=== PATIENT | female | born 1995 | race Caucasian/White ===

== ENCOUNTER 2018-03-13 19:53 | Emergency (ER) | payer OTHER ==
[~2018-03-13] VITALS: Ht 180.3 cm; Wt 100.2 kg
[~2018-03-13 19:53] MED LIST: BIRTH CONTROL PILL PO; Triamcinolone A15 GM TOP
[2018-03-13] MEDS ORDERED: BIRTH CONTROL (20:58)
== END 2018-03-13 22:37 | disposition home or self-care (01) ==
LOC: ER 19:53
DX: S09.90XA Unspecified injury of head, initial encounter (principal); S40.012A Contusion of left shoulder, initial encounter; S70.02XA Contusion of left hip, initial encounter; V80.010A Animal-rider injured by fall from or being thrown from horse in noncollision accident, initial encounter
CPT/HCPCS: 70450; 71046; 72125; 73030; 73502; 99284; L0160

== ENCOUNTER 2019-08-01 16:46 | Emergency (ER) | payer OTHER ==
[~2019-08-01] VITALS: Ht 180.3 cm; Wt 83.5 kg
[~2019-08-01 16:46] MED LIST changes: +BIRTH CONTROL
[2019-08-01] MEDS ORDERED: ONDA4ODT MM (17:44)
== END 2019-08-01 18:01 | disposition home or self-care (01) ==
LOC: ER 16:46
DX: S09.90XA Unspecified injury of head, initial encounter (principal); S16.1XXA Strain of muscle, fascia and tendon at neck level, initial encounter; V80.010A Animal-rider injured by fall from or being thrown from horse in noncollision accident, initial encounter
CPT/HCPCS: 72040; 99284-25; L0160

== ENCOUNTER 2022-05-14 20:10 | Emergency (ER) | payer OTHER ==
[~2022-05-14] VITALS: Ht 177.8 cm; Wt 93.0 kg
[~2022-05-14 20:10] MED LIST changes: +ONDA4ODT MM
== END 2022-05-14 22:27 | disposition home or self-care (01) ==
LOC: ER 20:10
DX: O21.9 Vomiting of pregnancy, unspecified (principal); O99.891 Other specified diseases and conditions complicating pregnancy; R19.7 Diarrhea, unspecified; Z3A.00 Weeks of gestation of pregnancy not specified
CPT/HCPCS: 36415

== ENCOUNTER → 2022-09-19 | Outpatient (CLI) | payer OTHER ==
[2022-09-19 17:28] LABS: BASOPHILS ABSOLUTE AUTO 0.02 K/mm3 (0.00-0.23); BASOPHILS PERCENT AUTO 0 % (0-2); EOSINOPHILS PERCENT AUTO 0 % (0-6); Hematocrit 42.4 % (33.0-51.0); IMMATURE GRAN ABSOLUTE AUTO 0.07 K/mm3 (0.00-0.10); IMMATURE GRAN PERCENT AUTO 1 % (0-1); LYMPHOCYTES ABSOLUTE AUTO 0.71 K/mm3 (0.84-5.20); LYMPHOCYTES PERCENT AUTO 13 % (21-46); MONOCYTES PERCENT AUTO 11 % (4-13); Mean Corpuscular HGB 31.8 pg (26.0-34.0); Mean Corpuscular HGB Conc 35.4 g/dL (31.5-36.5); Mean Corpuscular Volume 90 fL (80-100); Mean Platelet Volume 11.1 fL (9.1-12.4); NEUTROPHILS ABSOLUTE AUTO 4.19 K/mm3 (1.96-9.15); NEUTROPHILS PERCENT AUTO 75 % (41-73); Platelet Count 176 K/mm3 (150-400); RDW Coefficient Variation 13.8 % (11.7-14.2); RDW Standard Deviation 45.7 fL (35.1-46.3); Red Blood Cell Count 4.72 M/mm3 (3.80-5.20); White Blood Cell Count 5.59 K/mm3 (4.00-11.30)
[2022-09-19 17:37] LABS: Albumin, Blood 3.4 g/dL (3.4-5.0); Albumin/Globulin Ratio 0.8 (0.8-1.8); Bilirubin, Total 0.4 mg/dL (0.1-1.0); Bun/Creatinine Ratio 11.5 (12.0-20.0); Calcium, Blood 8.9 mg/dL (8.5-10.1); Creatinine, Blood 0.61 mg/dL (0.40-1.00); Globulin, Blood 4.5 g/dL (2.2-4.0); Potassium, Blood 3.3 mmol/L (3.5-5.5); Total Protein, Blood 7.9 g/dL (6.4-8.2)
== END | disposition home or self-care (01) ==
LOC: LAB SHORT 17:19
PROVIDERS: Physician Assistant Medical
DX: R10.9 Unspecified abdominal pain (principal)
CPT/HCPCS: 80053; 85025

== ENCOUNTER → 2022-12-11 | Outpatient (CLI) | payer OTHER | END | disposition home or self-care (01) | LOC: LAB 14:41 → LAB SHORT 14:41 | DX: Z34.03 Encounter for supervision of normal first pregnancy, third trimester (principal); Z3A.36 36 weeks gestation of pregnancy | CPT/HCPCS: 87081; 87150 ==

== ENCOUNTER 2023-01-03 19:38 | Inpatient (IN) | payer OTHER ==
[~2023-01-03] VITALS: Ht 177.8 cm; Wt 109.1 kg
[2023-01-03 20:37] LABS: BASOPHILS ABSOLUTE AUTO 0.03 K/mm3 (0.00-0.23); BASOPHILS PERCENT AUTO 0 % (0-2); EOSINOPHILS PERCENT AUTO 1 % (0-6); Hematocrit 38.4 % (33.0-51.0); Hemoglobin 13.2 g/dL (11.5-16.0); IMMATURE GRAN PERCENT AUTO 1 % (0-1); LYMPHOCYTES PERCENT AUTO 10 % (21-46); MONOCYTES ABSOLUTE AUTO 0.72 K/mm3 (0.16-1.47); MONOCYTES PERCENT AUTO 5 % (4-13); Mean Corpuscular HGB 30.5 pg (26.0-34.0); Mean Corpuscular HGB Conc 34.4 g/dL (31.5-36.5); Mean Corpuscular Volume 89 fL (80-100); Mean Platelet Volume 11.8 fL (9.1-12.4); NEUTROPHILS ABSOLUTE AUTO 13.03 K/mm3 (1.96-9.15); NEUTROPHILS PERCENT AUTO 84 % (41-73); Platelet Count 201 K/mm3 (150-400); RDW Coefficient Variation 13.6 % (11.7-14.2); RDW Standard Deviation 43.9 fL (35.1-46.3); Red Blood Cell Count 4.33 M/mm3 (3.80-5.20); White Blood Cell Count 15.48 K/mm3 (4.00-11.30)
[2023-01-04 06:02] LABS: BASOPHILS ABSOLUTE AUTO 0.02 K/mm3 (0.00-0.23); BASOPHILS PERCENT AUTO 0 % (0-2); EOSINOPHILS PERCENT AUTO 1 % (0-6); Hematocrit 39.5 % (33.0-51.0); Hemoglobin 13.5 g/dL (11.5-16.0); IMMATURE GRAN ABSOLUTE AUTO 0.08 K/mm3 (0.00-0.10); IMMATURE GRAN PERCENT AUTO 1 % (0-1); LYMPHOCYTES ABSOLUTE AUTO 1.54 K/mm3 (0.84-5.20); LYMPHOCYTES PERCENT AUTO 12 % (21-46); MONOCYTES ABSOLUTE AUTO 0.77 K/mm3 (0.16-1.47); MONOCYTES PERCENT AUTO 6 % (4-13); Mean Corpuscular HGB 30.7 pg (26.0-34.0); Mean Corpuscular HGB Conc 34.2 g/dL (31.5-36.5); Mean Corpuscular Volume 90 fL (80-100); Mean Platelet Volume 11.9 fL (9.1-12.4); NEUTROPHILS ABSOLUTE AUTO 10.61 K/mm3 (1.96-9.15); NEUTROPHILS PERCENT AUTO 81 % (41-73); Platelet Count 174 K/mm3 (150-400); RDW Coefficient Variation 13.7 % (11.7-14.2); RDW Standard Deviation 44.9 fL (35.1-46.3); White Blood Cell Count 13.12 K/mm3 (4.00-11.30)
[2023-01-04 06:05] LABS: Protein, Urine Random 21.4 mg/dL (0.0-11.9); Protein/Creat Ratio, Ur Random 0.2
[2023-01-04 06:17] LABS: Albumin, Blood 2.6 g/dL (3.4-5.0); Albumin/Globulin Ratio 0.6 (0.8-1.8); Bilirubin, Total 0.3 mg/dL (0.1-1.0); Bun/Creatinine Ratio 17.8 (12.0-20.0); Calcium, Blood 8.9 mg/dL (8.5-10.1); Creatinine, Blood 0.56 mg/dL (0.40-1.00); Globulin, Blood 4.3 g/dL (2.2-4.0); Potassium, Blood 3.7 mmol/L (3.5-5.5); Total Protein, Blood 6.9 g/dL (6.4-8.2)
[2023-01-04 07:31] LABS: International Normalized Ratio 0.99; Prothrombin Time Results 10.4 Sec (9.7-11.5)
--- NOTE | 2023-01-06 07:56 | NUR ---
01/06/23 0756 Lory Rich 0735 DELIVERY VIABLE MALE WEIGHT [id number] 10# 3OZ, HEAD 15 INCHES, CHEST 15 INCHES, LENGTH 22 INCHES, APGARS 9/9, UMBILICAL CORD BLOOD COLLECTED GIVEN TO OB RN , UMBILICAL CORD SEGMENT COLLECTED FOR CORD GASES AND GIVEN TO RT.
[2023-01-06 08:00] LABS: PCO2 Cord - Arterial 64.7 mmHg (40-50); PO2 Cord - Arterial 15.3 mmHg (16-20); pH Cord - Arterial 7.23 (7.28-7.35)
[2023-01-06 08:02] LABS: PCO2 Cord - Venous 50.9 mmHg (40-50); PO2 Cord - Venous 22.5 mmHg (28-32); pH Umbilical Cord - Venous 7.32 (7.26-7.35)
[2023-01-07 06:06] LABS: BASOPHILS ABSOLUTE AUTO 0.04 K/mm3 (0.00-0.23); BASOPHILS PERCENT AUTO 0 % (0-2); EOSINOPHILS ABSOLUTE AUTO 0.04 K/mm3 (0.00-0.68); EOSINOPHILS PERCENT AUTO 0 % (0-6); Hematocrit 36.9 % (33.0-51.0); Hemoglobin 12.4 g/dL (11.5-16.0); IMMATURE GRAN ABSOLUTE AUTO 0.09 K/mm3 (0.00-0.10); IMMATURE GRAN PERCENT AUTO 1 % (0-1); LYMPHOCYTES PERCENT AUTO 5 % (21-46); MONOCYTES ABSOLUTE AUTO 1.17 K/mm3 (0.16-1.47); MONOCYTES PERCENT AUTO 6 % (4-13); Mean Corpuscular HGB 30.3 pg (26.0-34.0); Mean Corpuscular HGB Conc 33.6 g/dL (31.5-36.5); Mean Corpuscular Volume 90 fL (80-100); Mean Platelet Volume 11.6 fL (9.1-12.4); NEUTROPHILS ABSOLUTE AUTO 16.13 K/mm3 (1.96-9.15); NEUTROPHILS PERCENT AUTO 88 % (41-73); Platelet Count 150 K/mm3 (150-400); RDW Coefficient Variation 14.1 % (11.7-14.2); RDW Standard Deviation 46.5 fL (35.1-46.3); Red Blood Cell Count 4.09 M/mm3 (3.80-5.20); White Blood Cell Count 18.37 K/mm3 (4.00-11.30)
[2023-01-08] MEDS ORDERED: DOCU100 PO (07:55)
[2023-01-08] MEDS ORDERED: IBUP800 PO (07:55)
[2023-01-08] MEDS ORDERED: Percocet 5-3251 EACH PO (07:57)
[2023-01-08] MEDS ORDERED: PRENATAL TABLE1 EAC2 PO (07:57)
--- NOTE | 2023-01-08 11:02 | NUR ---
AMBULATE OUT, HAS YOGI AT [facility] NUMBER TO CALL FOR HELP THIS WEEK, PT WANTS TO LEAVE AND GO HOME, FEELS GOOD ABOUT , gave some formula for back up incase mom has problems latching baby. dr kyle and both saw and talked to mom about feeds. pt has jona dressing patches and instructed how to use, has an appointment with dr kyle next week to remove jona dressing. pt has pffu tomorrow with candy to evlauate how mom and baby are doing
== END 2023-01-08 11:00 | disposition home or self-care (01) | DRG 786 ==
LOC: OBS 19:38 → BC 19:41 → OBS 19:51 → BC 19:52
PROVIDERS: ADMIT Family Medicine
PROC: 10H07YZ Insertion of Other Device into Products of Conception, Via Natural or Artificial Opening (ICD-10-PCS; 2023-01-06)
PROC: 4A033R1 Measurement of Arterial Saturation, Peripheral, Percutaneous Approach (ICD-10-PCS; 2023-01-06)
PROC: 10D00Z1 Extraction of Products of Conception, Low, Open Approach (ICD-10-PCS; principal; 2023-01-06 06:30)
DX: O48.0 Post-term pregnancy (principal); O41.1230 Chorioamnionitis, third trimester, not applicable or unspecified; O34.13 Maternal care for benign tumor of corpus uteri, third trimester; D25.9 Leiomyoma of uterus, unspecified; O76 Abnormality in fetal heart rate and rhythm complicating labor and delivery; O13.4 Gestational [pregnancy-induced] hypertension without significant proteinuria, complicating childbirth; Z37.0 Single live birth; Z3A.40 40 weeks gestation of pregnancy
CPT/HCPCS: 36415; 80053; 82570; 82803; 83615; 84156; 85025; 85384; 85610; 85730; 86850; 86900; 86901; 88307; 94640; 94664; 94760; A9270; J0290; J0456; J0690; J1580; J1885; J2210; J2405; J2590; J2765; J3010; J7050; J7120

== ENCOUNTER 2023-07-06 15:35 | Emergency (ER) | payer OTHER ==
[~2023-07-06] VITALS: Ht 177.8 cm; Wt 98.0 kg
[~2023-07-06 15:35] MED LIST changes: +DOCU100 PO; +IBUP800 PO; +PRENATAL TABLE1 EAC2 PO; +Percocet 5-3251 EACH PO
[2023-07-06 15:39] VITALS: BP 143/77
[2023-07-06 16:41] LABS: Source, Urine Clean Catch
[2023-07-06 16:55] LABS: Appearance, Urine Clear (Clear); Bilirubin, Urine Neg (Neg); Blood, Urine 4+ (Neg); Color, Urine Yellow (P-Yellow); Glucose Qualitative, Urine Neg (Neg); Ketones, Urine Neg (Neg); Leukocyte Esterase, Urine 2+ (Neg); Nitrite, Urine Neg (Neg); Protein, Urine Neg (Neg); Urobilinogen, Urine NORM (Normal)
[2023-07-06 17:20] LABS: Bacteria Many /hpf; Squamous Epithelial Cells Mod /hpf (Few)
== END 2023-07-06 17:15 | disposition home or self-care (01) ==
LOC: ER 15:35
PROVIDERS: Physician Assistant
DX: R07.89 Other chest pain (principal); N93.9 Abnormal uterine and vaginal bleeding, unspecified
CPT/HCPCS: 76801; 76817; 81001; 84702; 86900; 86901; 87086; 93005; 93010; 99284-25

== ENCOUNTER 2023-07-07 03:40 | Observation (INO) | payer OTHER ==
[~2023-07-07] VITALS: Ht 177.8 cm; Wt 99.3 kg
[2023-07-07 04:03] LABS: BASOPHILS ABSOLUTE AUTO 0.04 K/mm3 (0.00-0.23); BASOPHILS PERCENT AUTO 0 % (0-2); EOSINOPHILS PERCENT AUTO 1 % (0-6); Hematocrit 36.7 % (33.0-51.0); Hemoglobin 12.4 g/dL (11.5-16.0); IMMATURE GRAN ABSOLUTE AUTO 0.04 K/mm3 (0.00-0.10); IMMATURE GRAN PERCENT AUTO 0 % (0-1); LYMPHOCYTES ABSOLUTE AUTO 1.24 K/mm3 (0.84-5.20); LYMPHOCYTES PERCENT AUTO 8 % (21-46); MONOCYTES PERCENT AUTO 5 % (4-13); Mean Corpuscular HGB 28.4 pg (26.0-34.0); Mean Corpuscular HGB Conc 33.8 g/dL (31.5-36.5); Mean Corpuscular Volume 84 fL (80-100); Mean Platelet Volume 11.6 fL (9.1-12.4); NEUTROPHILS ABSOLUTE AUTO 13.48 K/mm3 (1.96-9.15); NEUTROPHILS PERCENT AUTO 86 % (41-73); Platelet Count 240 K/mm3 (150-400); RDW Coefficient Variation 13.5 % (11.7-14.2); RDW Standard Deviation 41.9 fL (35.1-46.3); Red Blood Cell Count 4.36 M/mm3 (3.80-5.20)
[2023-07-07 04:21] LABS: Albumin, Blood 3.5 g/dL (3.4-5.0); Albumin/Globulin Ratio 0.9 (0.8-1.8); Bilirubin, Total 0.5 mg/dL (0.1-1.0); Bun/Creatinine Ratio 15.1 (12.0-20.0); Calcium, Blood 8.9 mg/dL (8.5-10.1); Creatinine, Blood 0.66 mg/dL (0.40-1.00); Globulin, Blood 3.9 g/dL (2.2-4.0); Potassium, Blood 3.4 mmol/L (3.5-5.5); Total Protein, Blood 7.4 g/dL (6.4-8.2)
[2023-07-07 04:41] LABS: International Normalized Ratio 1.14; Prothrombin Time Results 11.9 Sec (9.7-11.5)
[2023-07-07 07:35] LABS: Calcium, Ionized (POC) 1.16 mmol/L (1.10-1.46); Chloride (POC) 103 mmol/L (98-108); Creatinine (POC) 0.5 mg/dL (0.6-1.0); Glucose (ISTAT POC) 169 mg/dL (70-99); Hemoglobin (POC) 10.5 g/dL (12.0-16.0); Potassium (POC) 3.8 mmol/L (3.5-5.5); Sodium (POC) 137 mmol/L (135-148); Total CO2 (POC) 18 mmol/L (21-32)
[2023-07-07 09:29] VITALS: BP 107/77
[2023-07-07 10:00] VITALS: BP 124/70
[2023-07-07 12:08] VITALS: BP 112/54
[2023-07-07 14:13] LABS: Hematocrit 26.7 % (33.0-51.0)
[2023-07-07 15:12] VITALS: BP 99/58
--- NOTE | 2023-07-07 18:55 | NUR ---
SHIFT SUMMARY PT ADMITTED TO UNIT AT APROX 1000 FROM ER. PT INITIALLY WAS PASSING LARGE CLOTS AND WHAT APPEARED TO BE TISSUE TWICE. CYTOTEC GIVEN PER EMAR. BLEEDING AND CLOTS HAVE SLOWED. MEDICATED FOR PAIN ONCE. HEATING PAD AND REPOSITION FREQUENTLY FOR COMFORT. BOLUS GIVEN FOR ELEVATED LACTIC. CONTINUE CYTOTEC AND IV ABX. CLEAN HAT PLACED IN BATHRROM TO COLLECT URINE FOR STD SCREEN. TOLERATING REGULAR DIET WITH NO N/V.
[2023-07-07 19:24] VITALS: BP 120/69
[2023-07-07 21:00] LABS: BASOPHILS ABSOLUTE AUTO 0.02 K/mm3 (0.00-0.23); BASOPHILS PERCENT AUTO 0 % (0-2); EOSINOPHILS ABSOLUTE AUTO 0.07 K/mm3 (0.00-0.68); EOSINOPHILS PERCENT AUTO 1 % (0-6); Hemoglobin 8.5 g/dL (11.5-16.0); IMMATURE GRAN ABSOLUTE AUTO 0.07 K/mm3 (0.00-0.10); IMMATURE GRAN PERCENT AUTO 1 % (0-1); LYMPHOCYTES ABSOLUTE AUTO 1.67 K/mm3 (0.84-5.20); LYMPHOCYTES PERCENT AUTO 11 % (21-46); MONOCYTES ABSOLUTE AUTO 0.83 K/mm3 (0.16-1.47); MONOCYTES PERCENT AUTO 5 % (4-13); Mean Corpuscular HGB 28.7 pg (26.0-34.0); Mean Corpuscular Volume 85 fL (80-100); Mean Platelet Volume 11.7 fL (9.1-12.4); NEUTROPHILS ABSOLUTE AUTO 12.74 K/mm3 (1.96-9.15); NEUTROPHILS PERCENT AUTO 83 % (41-73); Platelet Count 205 K/mm3 (150-400); RDW Coefficient Variation 13.9 % (11.7-14.2); RDW Standard Deviation 42.6 fL (35.1-46.3); Red Blood Cell Count 2.96 M/mm3 (3.80-5.20)
[2023-07-07 21:19] LABS: Bun/Creatinine Ratio 13.8 (12.0-20.0); Calcium, Blood 8.5 mg/dL (8.5-10.1); Creatinine, Blood 0.73 mg/dL (0.40-1.00)
[2023-07-08] VITALS (8 sets, daily range): BP systolic 106–133; BP diastolic 48–67
--- NOTE | 2023-07-08 06:37 | NUR ---
PT VSS T/O NIGHT. ESTHER PAD CHANGED X2 THIS SHSIFT W/SMALL-MOD AMT DARK RED BLOOD, NO CLOTS NOTED. BLEEDING APPEARS TO BE TAPERING OFF WHEN WIPING PER PT. ABD SOFT TO PALP, PT C/O CRAMPING PAINS, MED PER EMAR W/REP RELIEF. PT GRISEL PO, DENIED N/V, REP +FLATUS. PT UP OOB W/SBA, DENIED DIZZINESS WHEN UP. KPAD ON FOR COMFORT.
[2023-07-08 07:41] LABS: BASOPHILS ABSOLUTE AUTO 0.02 K/mm3 (0.00-0.23); BASOPHILS PERCENT AUTO 0 % (0-2); EOSINOPHILS ABSOLUTE AUTO 0.16 K/mm3 (0.00-0.68); EOSINOPHILS PERCENT AUTO 2 % (0-6); Hematocrit 21.6 % (33.0-51.0); Hemoglobin 7.3 g/dL (11.5-16.0); IMMATURE GRAN ABSOLUTE AUTO 0.05 K/mm3 (0.00-0.10); IMMATURE GRAN PERCENT AUTO 1 % (0-1); LYMPHOCYTES ABSOLUTE AUTO 1.61 K/mm3 (0.84-5.20); LYMPHOCYTES PERCENT AUTO 15 % (21-46); MONOCYTES ABSOLUTE AUTO 0.72 K/mm3 (0.16-1.47); MONOCYTES PERCENT AUTO 7 % (4-13); Mean Corpuscular HGB 28.9 pg (26.0-34.0); Mean Corpuscular HGB Conc 33.8 g/dL (31.5-36.5); Mean Corpuscular Volume 85 fL (80-100); Mean Platelet Volume 11.4 fL (9.1-12.4); NEUTROPHILS ABSOLUTE AUTO 8.41 K/mm3 (1.96-9.15); NEUTROPHILS PERCENT AUTO 77 % (41-73); Platelet Count 159 K/mm3 (150-400); RDW Coefficient Variation 14.1 % (11.7-14.2); RDW Standard Deviation 43.6 fL (35.1-46.3); Red Blood Cell Count 2.53 M/mm3 (3.80-5.20); White Blood Cell Count 10.97 K/mm3 (4.00-11.30)
[2023-07-08 14:44] LABS: Hematocrit 24.9 % (33.0-51.0); Hemoglobin 8.4 g/dL (11.5-16.0)
[2023-07-08] MEDS ORDERED: MISO100 PO (15:22)
[2023-07-08] MEDS ORDERED: DOXY100 PO (15:23)
--- NOTE | 2023-07-08 16:37 | NUR ---
discharged REVIEWED DC INSTRUCTIONS W/PT; VERBALIZED UNDERSTANDING. DC'D IV, CATHETER INTACT. TELE DC'D. VSS. PT LEFT UNIT IN WC W/POSSESSIONS AND DC PAPERWORK IN HAND, ACCOMPANIED BY FAMILY.
[2023-07-10 02:07] LABS: CHLAMYDIA TRACHOMATIS, NAA Negative (Negative)
== END 2023-07-08 16:38 | disposition home or self-care (01) ==
LOC: ER 03:40 → ERHOLD 03:41 → SURS 09:25
PROVIDERS: Student in an Organized Health Care Education/Training Program; ADMIT Family Medicine
PROC: 10D17Z9 Manual Extraction of Products of Conception, Retained, Via Natural or Artificial Opening (ICD-10-PCS; principal; 2023-07-07)
DX: O03.4 Incomplete spontaneous abortion without complication (principal); D62 Acute posthemorrhagic anemia; I95.9 Hypotension, unspecified; E87.21 Acute metabolic acidosis
CPT/HCPCS: 36415; 36430; 59812; 74177; 76857; 80047; 80048; 80053; 83605; 84702; 85014; 85018; 85025; 85610; 86850; 86900; 86901; 86920; 86923; 87040; 87491; 87591; 88305; 96361-59; 96365-59; 96366; 96367; 96372; 96375; 96375-59; 96376; 96376-59; 99291-25; A9270; G0378; J0736; J1050; J1170; J1580; J1885; J2210; J2405; J3010; J3480; J7030; J7050; P9016; Q9967

== ENCOUNTER 2023-07-17 15:52 | Emergency (ER) | payer OTHER ==
[~2023-07-17] VITALS: Ht 177.8 cm; Wt 99.8 kg
[~2023-07-17 15:52] MED LIST changes: +DOXY100 PO; +MISO100 PO
[2023-07-17 16:46] LABS: BASOPHILS ABSOLUTE AUTO 0.03 K/mm3 (0.00-0.23); BASOPHILS PERCENT AUTO 0 % (0-2); EOSINOPHILS ABSOLUTE AUTO 0.17 K/mm3 (0.00-0.68); EOSINOPHILS PERCENT AUTO 2 % (0-6); Hematocrit 26.6 % (33.0-51.0); Hemoglobin 8.5 g/dL (11.5-16.0); IMMATURE GRAN ABSOLUTE AUTO 0.16 K/mm3 (0.00-0.10); IMMATURE GRAN PERCENT AUTO 1 % (0-1); LYMPHOCYTES ABSOLUTE AUTO 1.39 K/mm3 (0.84-5.20); LYMPHOCYTES PERCENT AUTO 12 % (21-46); MONOCYTES ABSOLUTE AUTO 0.55 K/mm3 (0.16-1.47); MONOCYTES PERCENT AUTO 5 % (4-13); Mean Corpuscular Volume 88 fL (80-100); Mean Platelet Volume 11.9 fL (9.1-12.4); NEUTROPHILS ABSOLUTE AUTO 8.96 K/mm3 (1.96-9.15); NEUTROPHILS PERCENT AUTO 80 % (41-73); NRBC ABSOLUTE 0.03 K/mm3 (0.00-0.02); NRBC Auto 0.3 /100 WBC (0.0-0.2); Platelet Count 239 K/mm3 (150-400); RDW Coefficient Variation 14.5 % (11.7-14.2); RDW Standard Deviation 45.5 fL (35.1-46.3); Red Blood Cell Count 3.04 M/mm3 (3.80-5.20); White Blood Cell Count 11.26 K/mm3 (4.00-11.30)
[2023-07-17 17:30] LABS: Calcium, Ionized (POC) 1.22 mmol/L (1.10-1.46); Chloride (POC) 107 mmol/L (98-108); Creatinine (POC) 0.8 mg/dL (0.6-1.0); Glucose (ISTAT POC) 97 mg/dL (70-99); Hemoglobin (POC) 8.5 g/dL (12.0-16.0); Potassium (POC) 3.8 mmol/L (3.5-5.5); Sodium (POC) 140 mmol/L (135-148); Total CO2 (POC) 20 mmol/L (21-32)
[2023-07-17 17:35] LABS: Albumin, Blood 3.6 g/dL (3.4-5.0); Bilirubin, Total 0.3 mg/dL (0.1-1.0); Bun/Creatinine Ratio 15.7 (12.0-20.0); Calcium, Blood 9.4 mg/dL (8.5-10.1); Creatinine, Blood 0.83 mg/dL (0.40-1.00); Globulin, Blood 3.7 g/dL (2.2-4.0); Potassium, Blood 3.9 mmol/L (3.5-5.5); Total Protein, Blood 7.3 g/dL (6.4-8.2)
[2023-07-17 19:45] VITALS: BP 126/60
== END 2023-07-17 20:06 | disposition home or self-care (01) ==
LOC: ER 15:52
PROVIDERS: Emergency Medicine; Student in an Organized Health Care Education/Training Program
DX: N93.9 Abnormal uterine and vaginal bleeding, unspecified (principal); Z98.890 Other specified postprocedural states; Z79.899 Other long term (current) drug therapy
CPT/HCPCS: 76856; 80047; 80053; 84702; 85014; 85025; 96361; 96365; 96374; 96375; 99284-25; J0696; J7030

== ENCOUNTER 2025-02-21 16:00 | Emergency (ER) | payer OTHER ==
[~2025-02-21] VITALS: Ht 177.8 cm; Wt 104.3 kg
[2025-02-21 16:13] VITALS: BP 159/99
[2025-02-21] MEDS ORDERED: ESTARYLLA 0.251 EACH PO (16:16)
[2025-02-21] MEDS ORDERED: Mag Hydrox/AL Hydrox/Simeth 30 ML UDC PO ONE (16:25)
[2025-02-21] MEDS ORDERED: Lidocaine 2% Viscous Soln 15 ML UDC SS ONE (16:25)
== END 2025-02-21 16:35 | disposition home or self-care (01) ==
LOC: ER 16:00
DX: B08.4 Enteroviral vesicular stomatitis with exanthem (principal); Z79.3 Long term (current) use of hormonal contraceptives; Z59.89 Other problems related to housing and economic circumstances
CPT/HCPCS: 99283; A9270

== ENCOUNTER → 2025-05-14 | Outpatient (CLI) | payer OTHER ==
[~2025-05-14] MED LIST changes: +ESTARYLLA 0.251 EACH PO
[2025-05-14 17:43] LABS: BASOPHILS ABSOLUTE AUTO 0.03 K/mm3 (0.00-0.23); BASOPHILS PERCENT AUTO 0 % (0-2); EOSINOPHILS ABSOLUTE AUTO 0.13 K/mm3 (0.00-0.68); EOSINOPHILS PERCENT AUTO 1 % (0-6); Hematocrit 38.8 % (33.0-51.0); Hemoglobin 12.7 g/dL (11.5-16.0); IMMATURE GRAN ABSOLUTE AUTO 0.05 K/mm3 (0.00-0.10); IMMATURE GRAN PERCENT AUTO 0 % (0-1); LYMPHOCYTES ABSOLUTE AUTO 1.18 K/mm3 (0.84-5.20); LYMPHOCYTES PERCENT AUTO 7 % (21-46); MONOCYTES ABSOLUTE AUTO 0.72 K/mm3 (0.16-1.47); MONOCYTES PERCENT AUTO 5 % (4-13); Mean Corpuscular HGB Conc 32.7 g/dL (31.5-36.5); Mean Corpuscular Volume 85 fL (80-100); NEUTROPHILS ABSOLUTE AUTO 13.97 K/mm3 (1.96-9.15); NEUTROPHILS PERCENT AUTO 87 % (41-73); NRBC ABSOLUTE 0.00 K/mm3 (0.00-0.02); NRBC Auto 0.0 /100 WBC (0.0-0.2); Platelet Count 215 K/mm3 (150-400); RDW Coefficient Variation 13.5 % (11.7-14.2); RDW Standard Deviation 42.2 fL (35.1-46.3)
== END ==
LOC: LAB 17:39 → LAB SHORT 17:39
PROVIDERS: Physician Assistant
DX: R10.2 Pelvic and perineal pain (principal)
CPT/HCPCS: 84702; 85025

== ENCOUNTER → 2025-05-16 | Outpatient (CLI) | payer OTHER ==
[2025-05-16 17:59] LABS: BASOPHILS ABSOLUTE AUTO 0.02 K/mm3 (0.00-0.23); BASOPHILS PERCENT AUTO 0 % (0-2); EOSINOPHILS ABSOLUTE AUTO 0.20 K/mm3 (0.00-0.68); EOSINOPHILS PERCENT AUTO 2 % (0-6); Hematocrit 37.0 % (33.0-51.0); Hemoglobin 11.8 g/dL (11.5-16.0); IMMATURE GRAN ABSOLUTE AUTO 0.02 K/mm3 (0.00-0.10); IMMATURE GRAN PERCENT AUTO 0 % (0-1); LYMPHOCYTES ABSOLUTE AUTO 2.13 K/mm3 (0.84-5.20); LYMPHOCYTES PERCENT AUTO 23 % (21-46); MONOCYTES ABSOLUTE AUTO 0.47 K/mm3 (0.16-1.47); MONOCYTES PERCENT AUTO 5 % (4-13); Mean Corpuscular HGB Conc 31.9 g/dL (31.5-36.5); Mean Corpuscular Volume 86 fL (80-100); NEUTROPHILS ABSOLUTE AUTO 6.40 K/mm3 (1.96-9.15); NEUTROPHILS PERCENT AUTO 69 % (41-73); NRBC ABSOLUTE 0.00 K/mm3 (0.00-0.02); NRBC Auto 0.0 /100 WBC (0.0-0.2); Platelet Count 227 K/mm3 (150-400); RDW Coefficient Variation 13.4 % (11.7-14.2); RDW Standard Deviation 42.1 fL (35.1-46.3)
== END ==
LOC: LAB SHORT 16:38 → LAB 16:38
PROVIDERS: Physician Assistant
DX: O03.4 Incomplete spontaneous abortion without complication (principal)
CPT/HCPCS: 84702; 85025